=== PATIENT | male | born 1955 | race Two or more races ===

== ENCOUNTER 2025-02-05 06:00 | Day surgery (SDC) | payer OTHER ==
[2025-01-30 08:51] LABS: BASO % 0.5 % (0.1-1.2); EOS # 0.09 (0.04-0.54); EOS % 1.5 % (0.7-7.0); LYMPH # 0.90 (1.18-3.74); LYMPH % 14.9 % (19.3-53.1); MEAN PLATELET VOLUME 10.70 fl (9.4-12.4); MONO # 1.06 (0.24-0.82); NEUT # 3.94 (1.56-6.13); NEUT % 65.3 % (34.0-71.1); RED CELL DISTRIBUTION WIDTH 12.7 % (11.6-14.4)
[2025-01-30 08:56] LABS: URINE APPEARANCE Clear; URINE BILIRRUBIN Negative (NEGATIVE); URINE BLOOD Negative; URINE COLOR Yellow; URINE GLUCOSE Negative (NEGATIVE); URINE KETONE Negative (NEGATIVE); URINE LEUKOCYTE Negative; URINE NITRATE Negative; URINE PROTEIN Negative (NEGATIVE); URINE UROBILINOGEN 0.2 E.U./dl
[2025-01-30 08:57] LABS: URINE EPITHELIAL CELLS 2.9 uL (0.0-38.8)
[2025-01-30 09:00] LABS: MONO % 17.6 % (4.7-12.5)
[2025-01-30 09:11] LABS: URINE BACTERIA 3.5 uL (0.0-1933); URINE CAST 0.14 uL (0.0-1.40); URINE RBC 0.7 uL (0.0-20.8); URINE WBC 0.6 uL (0.0-23.2)
[2025-01-30 09:15] LABS: INR 0.98
[2025-01-30 09:41] LABS: ALT/SGPT 42.0 U/L (12-78); AST/SGOT 23.0 U/L (15-37); BILIRUBIN TOTAL 0.61 mg/dL (0.3-1.2); BUN CREA RATIO 17.0 (7.0-25.0); CREATININE SERUM 0.94 mg/dL (0.70-1.30); GFR 79.11; GLOBULINA 3.4 G/DL (2.4-3.5); GLUCOSE FASTING 111.0 mg/dL (65-100); OSMOLALITY SERUM 285.0 MOSM/KG (275-295)
[2025-02-05] MEDS ORDERED: LIDOCAINE HCL 1%/EPINEPHRINE 20ML VIAL IJ ONE (06:42)
[2025-02-05] MEDS ORDERED: BUPIVACAINE HCL/MPF 0.5% 30ML VIAL ONE ×2 (06:42→07:41)
[2025-02-05] MEDS ORDERED: CEFAZOLIN SODIUM 1,000 MG VIAL ONE (06:50)
[2025-02-05] MEDS ORDERED: SUGAMMADEX SODIUM 200 MG/2 ML VIAL IV ONE (07:41)
[2025-02-05] MEDS ORDERED: KETOROLAC TROMETHAMINE 30 MG VIAL ONE (08:53)
[2025-02-05] MEDS ORDERED: TYLENOL ARTHRI650 MG PO (09:48)
[2025-02-05] MEDS ORDERED: TRAMADOL HCL50 MG PO (09:48)
[2025-02-05] MEDS ORDERED: KETO10TA2 PO (09:48)
[2025-02-05] MEDS ORDERED: MIRALAX17 GM PO (09:48)
== END 2025-02-05 12:10 | disposition home or self-care (01) ==
LOC: CIR.AMB 06:00
PROVIDERS: ATTEND Surgery
DX: K40.20 Bilateral inguinal hernia, without obstruction or gangrene, not specified as recurrent (principal); K42.0 Umbilical hernia with obstruction, without gangrene
CPT/HCPCS: 49650; 49592; C1781